=== PATIENT | female | born 2000 | race Two or more races ===

== ENCOUNTER 2019-11-14 20:13 | Emergency (ER) | payer OTHER ==
[~2019-11-14] VITALS: Ht 157.5 cm; Wt 69.6 kg
[2019-11-14 20:14] VITALS: BP 108/58
[2019-11-14] MEDS ORDERED: ONDANSETRON 4 MG ORAL DISINTEGRATING TAB PO ONE (20:45)
[2019-11-14] MEDS ORDERED: ONDA4TAB6 PO (20:55)
[2019-11-14] MEDS ORDERED: BENZ200C70 PO (20:55)
== END 2019-11-14 21:00 | disposition home or self-care (01) ==
LOC: M ED 20:13 → EDBD 20:13 → M ED 21:00
DX: J06.9 Acute upper respiratory infection, unspecified (principal); R11.0 Nausea; Z11.59 Encounter for screening for other viral diseases
CPT/HCPCS: 87486; 87581; 87633; 87798; 99282; Q0162

== ENCOUNTER 2020-03-27 18:23 | Emergency (ER) | payer OTHER ==
[~2020-03-27] VITALS: Ht 157.5 cm; Wt 75.0 kg
[~2020-03-27 18:23] MED LIST: BENZ200C70 PO; ONDA4TAB6 PO
[2020-03-27] MEDS ORDERED: ACETAMINOPHEN TAB 650MG DOSE (2X325MG) PO PRN (20:30)
[2020-03-27 21:01] LABS: APPEARANCE, URINE HAZY (CLEAR); BACTERIA, URINE AUTO NEGATIVE (NEGATIVE); BILIRUBIN, URINE AUTO NEGATIVE (NEGATIVE); BLOOD, URINE BLOOD NEGATIVE (NEGATIVE); COLOR, URINE YELLOW (YELLOW); GLUCOSE, URINE (UA) AUTO NEGATIVE (NEGATIVE); KETONE, URINE AUTO NEGATIVE (NEGATIVE); LEUKOCYTE ESTERASE, URINE AUTO TRACE (NEGATIVE); MUCUS, URINE SMALL (NEGATIVE); NITRITE, URINE AUTO NEGATIVE (NEGATIVE); PROTEIN, URINE AUTO NEGATIVE (NEGATIVE); RBC, URINE AUTO 3 /HPF (0-3); SQUAMOUS EPITHELIAL CELL UR AU 5 /HPF (0-6); UROBILINOGEN, URINE AUTO 0.2 mg/dL (0.0-2.0); WBC, URINE AUTO 1 /HPF (0-3)
--- NOTE | 2020-03-27 22:08 | REPVR ---
PROCEDURE INFORMATION: Exam: US , Limited Exam date and time: 03/27/20 (8:58pm) Age: 20 years old Clinical indication: female. Abdominal pain and cramping after a fall. Trauma. Buttock injury. Injury date: 03/27/20. TECHNIQUE: Imaging protocol: Real-time ultrasound of the maternal uterus with image documentation. Examination focused on the clinical indication. COMPARISON: No relevant prior studies available FINDINGS: The LMP is reported to be: 11/07/19 Based on the menstrual history, the current expected age = 20 weeks 1 day (with ARABELLA = 08/13/20). Other data provided states that the current age =18 weeks 4 days (with ARABELLA = 08/24/20). A single live intrauterine is identified. age parameters were not measured at this time. heart rate is recorded at 139 bpm. The fetus lies vertex. The placenta is anterior, with no evidence of previa nor abruption. The placenta is Grade 0. The cervix is closed, measuring 3.1 cm in length. Amniotic fluid volume is adequate, with the KYLEIGH = 11.8 cm (at the 20th percentile for the current expected age). The deepest fluid pocket = 3.5 cm. A full anatomic survey was not performed at this time. No adnexal pathology is appreciated. IMPRESSION: A single live intrauterine is identified, approx. 20 weeks 1 day expected age (based on the LMP provided). Other data provided states that the current age =18 weeks 4 days (with ARABELLA = 08/24/20). heartbeat is seen. The placenta is anterior, with no previa nor abruption noted. The cervix is closed. Electronically signed by: Keeley Mahmood On 03/27/2020 22:07:59 PM
[2020-03-27 22:53] VITALS: BP 104/58
== END 2020-03-27 22:56 | disposition home or self-care (01) ==
LOC: M ED 18:23
DX: O26.892 Other specified pregnancy related conditions, second trimester (principal); M54.5 Low back pain; Z3A.18 18 weeks gestation of pregnancy

== ENCOUNTER 2020-06-10 22:46 | Outpatient (CLI) | payer OTHER ==
[~2020-06-10] VITALS: Ht 157.5 cm; Wt 88.7 kg
[2020-06-10 23:03] VITALS: BP 108/63
[2020-06-11 00:22] VITALS: BP 96/51
--- NOTE | 2020-06-11 00:43 | IPNPDOC ---
Text Note Date of Service The patient was seen on 06/11/20. NOTE 19 yo LMP 11/07/2019 EDC 08/24/20 SEEN IN TRIAGE RE DECREASED MOVEMENT NO VAGINAL BLEEDING OR DISCHARGE . MONITOR CATEGORY 1 STRIP NO DECELERATIONS ACCELERATIONS NOTED MODERATE VARIABILITY BASELINE NORMAL . COUNSELLED WITH PRECAUTIONS APPOINTMENT AT 32 WEEKS . 1 HOUR GTT 146 DEFER FOR MONITORING OR 3 HOUR GTT. DISCHARGED UNDELIVERED VS,Fishbone, I+O VS, Fishbone, I+O Vital Signs Date Time Temp Pulse Resp B/P (MAP) Pulse Ox O2 Delivery O2 Flow Rate FiO2 06/11/20 00:22 88 18 96/51 (66) 06/11/20 00:21 98.1 Robby Guaman MD Jun 11, 2020 00:43
== END 2020-06-11 00:24 | disposition home or self-care (01) ==
LOC: M LDO 22:46
PROVIDERS: ATTEND Obstetrics & Gynecology
DX: O36.8190 Decreased fetal movements, unspecified trimester, not applicable or unspecified (principal); Z3A.00 Weeks of gestation of pregnancy not specified
CPT/HCPCS: 59025; G0378; G0463